=== PATIENT | male | born 1990 | race Caucasian/White ===

== ENCOUNTER 2018-10-17 21:50 | Emergency (ER) | payer SELFPAY ==
[~2018-10-17] VITALS: Ht 167.6 cm; Wt 64.4 kg
[2018-10-18] MEDS ORDERED: IBUPROFEN 600MG TABLET PO ONE (01:00)
[2018-10-18 02:04] VITALS: BP 108/55
== END 2018-10-18 02:10 | disposition home or self-care (01) ==
LOC: ER 21:50
DX: S93.491A Sprain of other ligament of right ankle, initial encounter (principal); S80.01XA Contusion of right knee, initial encounter; W19.XXXA Unspecified fall, initial encounter; Y93.89 Activity, other specified; Y92.89 Other specified places as the place of occurrence of the external cause; Y99.8 Other external cause status
CPT/HCPCS: 73562; 73610; 99283